=== PATIENT | male | born 1940 | race Caucasian/White ===

== ENCOUNTER → 2016-08-09 | Outpatient (REF) | payer MEDICARE, OTHER ==
[2016-08-09 17:25] LABS: ALBUMIN 3.4 GM/DL (3.2-5.2); ALKALINE PHOSPHATASE 92 U/L (45-117); ALT/SGPT 24 U/L (12-78); ANION GAP 5 MEQ/L (8-16); AST/SGOT 21 U/L (15-37); BILIRUBIN,TOTAL 0.5 MG/DL (0.2-1.0); BLOOD UREA NITROGEN 25 MG/DL (7-18); CARBON DIOXIDE LEVEL 31 MEQ/L (21-32); CHLORIDE LEVEL 105 MEQ/L (98-107); CHOLESTEROL LEVEL 180 MG/DL (<200); CREATININE FOR GFR 1.15 MG/DL (0.70-1.30); GLOMERULAR FILTRATION RATE > 60.0 (>42); GLUCOSE, FASTING 90 MG/DL (83-110); POTASSIUM SERUM 4.3 MEQ/L (3.5-5.1); SODIUM LEVEL 141 MEQ/L (136-145); TOTAL PROTEIN 6.8 GM/DL (6.4-8.2); TRIGLYCERIDES LEVEL 125 MG/DL (<150)
== END ==
LOC: M SFHCCAPE 07:16
PROVIDERS: ATTEND Nurse Practitioner
DX: E78.5 Hyperlipidemia, unspecified (principal); Z12.5 Encounter for screening for malignant neoplasm of prostate
CPT/HCPCS: 36415; 80053; 80061; G0103

== ENCOUNTER → 2017-03-07 | Outpatient (CLI) | payer MEDICARE, OTHER | LOC: M WUC 12:13 | DX: R05 Cough (principal); M41.85 Other forms of scoliosis, thoracolumbar region | CPT/HCPCS: 71046; G0463 ==

== ENCOUNTER → 2017-07-17 | Outpatient (REF) | payer MEDICARE, OTHER | LOC: M SFHCLERA 14:31 | DX: D23.5 Other benign neoplasm of skin of trunk (principal) | CPT/HCPCS: 88305 ==

== ENCOUNTER → 2018-02-25 | Outpatient (REF) | payer MEDICARE, OTHER ==
[~2018-02-25] MED LIST: ATOR1TAB21 PO; CLOP75TA2 PO; HYDR25TAB PO; LOSA50TA88 PO; SOTA80TA2 PO; WARF-23 PO
[2018-02-25 16:51] LABS: BASO # 0.1 10^3/uL (0.0-0.2); BASO % 0.7 % (0.0-1.0); EOS # 0.3 10^3/uL (0.0-0.50); EOS % 3.6 % (0.0-3.0); HEMATOCRIT 30.9 % (42.0-52.0); HEMOGLOBIN 9.6 g/dl (13.5-17.5); LYMPH # 1.8 10^3/uL (1.5-4.5); LYMPH % 24.2 % (24.0-44.0); MEAN CORPUSCULAR HEMOGLOBIN 29.7 pg (27.0-33.0); MEAN CORPUSCULAR HGB CONC 31.1 g/dl (32.0-36.5); MEAN CORPUSCULAR VOLUME 95.7 fl (80.0-96.0); MONO # 0.8 10^3/uL (0.0-0.8); MONO % 10.9 % (0.0-5.0); NEUTROPHILS # 4.5 10^3/uL (1.8-7.7); NEUTROPHILS % 60.3 % (36.0-66.0); PLATELET COUNT, AUTOMATED 249 10^3/uL (150-450); RED BLOOD COUNT 3.23 10^6/uL (4.30-6.10); WHITE BLOOD COUNT 7.4 10^3/uL (4.0-10.0)
[2018-02-25 16:56] LABS: ALBUMIN 3.2 GM/DL (3.2-5.2); BILIRUBIN,TOTAL 0.2 MG/DL (0.2-1.0); CALCIUM LEVEL 8.3 MG/DL (8.8-10.2); CHOLESTEROL RISK RATIO 2.111 (<5); CREATININE FOR GFR 1.27 MG/DL (0.70-1.30); GLOMERULAR FILTRATION RATE 58.2 (>42); POTASSIUM SERUM 5.1 MEQ/L (3.5-5.1); THYROID STIMULATING HORMONE 4.65 uIU/ML (0.358-3.740); TOTAL PROTEIN 6.5 GM/DL (6.4-8.2)
== END ==
LOC: M SFHCCAPE 07:36
PROVIDERS: ATTEND Physician Assistant
DX: I10 Essential (primary) hypertension (principal); E78.5 Hyperlipidemia, unspecified; Z12.5 Encounter for screening for malignant neoplasm of prostate
CPT/HCPCS: 36415; 80053; 80061; 84443; 85025; G0103

== ENCOUNTER → 2018-02-27 | Outpatient (REF) | payer MEDICARE, OTHER ==
[2018-02-27 17:15] LABS: APPEARANCE, URINE CLOUDY (CLEAR); BACTERIA, URINE AUTO NEGATIVE (NEGATIVE); BILIRUBIN, URINE AUTO NEGATIVE (NEGATIVE); BLOOD, URINE BLOOD 3+ (NEGATIVE); COLOR, URINE AMBER (YELLOW); GLUCOSE, URINE (UA) AUTO NEGATIVE (NEGATIVE); KETONE, URINE AUTO NEGATIVE (NEGATIVE); LEUKOCYTE ESTERASE, URINE AUTO NEGATIVE (NEGATIVE); MUCUS, URINE SMALL (NEGATIVE); NITRITE, URINE AUTO NEGATIVE (NEGATIVE); PROTEIN, URINE AUTO 2+ mg/dL (NEGATIVE); RBC, URINE AUTO TNTC /HPF (0-3); SPECIFIC GRAVITY URINE AUTO 1.013 (1.002-1.035); SQUAMOUS EPITHELIAL CELL UR AU 0 /HPF (0-6); UROBILINOGEN, URINE AUTO 0.2 mg/dL (0.0-2.0); WBC, URINE AUTO 3 /HPF (0-3)
== END ==
LOC: M SFHCCAPE 12:38
PROVIDERS: ATTEND Physician Assistant
DX: R82.998 Other abnormal findings in urine (principal)
CPT/HCPCS: 81001; 87086; G0463

== ENCOUNTER → 2018-03-05 | Outpatient (REF) | payer MEDICARE, OTHER | LOC: M SMT 13:17 | PROVIDERS: ATTEND Nurse Practitioner Women's Health | DX: R31.0 Gross hematuria (principal) | CPT/HCPCS: 88108; G0463 ==

== ENCOUNTER → 2018-03-06 | Outpatient (REF) | payer MEDICARE, OTHER ==
[2018-03-06 17:01] LABS: ALBUMIN 3.4 GM/DL (3.2-5.2); ALT/SGPT 17 U/L (12-78); BILIRUBIN,TOTAL 0.4 MG/DL (0.2-1.0); BLOOD UREA NITROGEN 42 MG/DL (7-18); CALCIUM LEVEL 8.9 MG/DL (8.8-10.2); CARBON DIOXIDE LEVEL 26 MEQ/L (21-32); CHLORIDE LEVEL 107 MEQ/L (98-107); CREATININE FOR GFR 1.08 MG/DL (0.70-1.30); GLOMERULAR FILTRATION RATE > 60.0 (>42); GLUCOSE, FASTING 83 MG/DL (70-100); POTASSIUM SERUM 4.4 MEQ/L (3.5-5.1); SODIUM LEVEL 142 MEQ/L (136-145); TOTAL PROTEIN 6.7 GM/DL (6.4-8.2)
[2018-03-06 17:02] LABS: BASO # 0.1 10^3/uL (0.0-0.2); BASO % 0.6 % (0.0-1.0); EOS # 0.2 10^3/uL (0.0-0.50); HEMATOCRIT 29.5 % (42.0-52.0); HEMOGLOBIN 9.3 g/dl (13.5-17.5); LYMPH # 1.9 10^3/uL (1.5-4.5); LYMPH % 24.2 % (24.0-44.0); MEAN CORPUSCULAR HEMOGLOBIN 29.9 pg (27.0-33.0); MEAN CORPUSCULAR HGB CONC 31.5 g/dl (32.0-36.5); MEAN CORPUSCULAR VOLUME 94.9 fl (80.0-96.0); MONO # 0.8 10^3/uL (0.0-0.8); MONO % 10.9 % (0.0-5.0); NEUTROPHILS # 4.7 10^3/uL (1.8-7.7); PLATELET COUNT, AUTOMATED 262 10^3/uL (150-450); RED BLOOD COUNT 3.11 10^6/uL (4.30-6.10); WHITE BLOOD COUNT 7.7 10^3/uL (4.0-10.0)
[2018-03-06 17:09] LABS: INR 1.57
== END ==
LOC: M SFHCCAPE 10:44
PROVIDERS: ATTEND Physician Assistant
DX: R04.0 Epistaxis (principal); R31.0 Gross hematuria
CPT/HCPCS: 36415; 80053; 85025; 85610; G0463

== ENCOUNTER → 2018-03-07 | Outpatient (CLI) | payer MEDICARE, OTHER ==
[~2018-03-07] MED LIST changes: +ISOVUE-370 76% 100ML VIAL (Q9967) As Ordered ONE
--- NOTE | 2018-03-07 12:46 | REP ---
CT UROGRAPHY: CT without and dual-phase postcontrast imaging abdomen and pelvis. HISTORY: Gross hematuria. CT CONTRAST DOSE: 100 mL of intravenous Isovue 370. 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 Fiducial markers are seen at the prostate. The bowel gas pattern is normal. There is a mild interstitial fibrosis pattern in the lower lobes of the lungs bilaterally. There are multiple benign hepatic cysts. The largest of these is in the left lobe measuring 5.1 x 4.0 cm. There are renal cortical cysts present bilaterally. The largest of these is in the right kidney mid pole level anteriorly measuring 2.3 cm. No hydronephrosis is seen on either side. There is vascular calcification. No definite intrarenal nephrolithiasis. The kidneys enhance symmetrically. There is heavy vascular calcification in the proximal renal arteries bilaterally. There is an infrarenal abdominal aortic aneurysm which measures 3.7 cm in greatest diameter. There is a small enhancing nodule in the posterior wall of the urinary bladder consistent with a neoplastic bladder lesion. This measures approximately 1.4 cm. This is seen as a filling defect on the right posterior bladder wall on delayed acquisition. No other enhancing bladder mass lesion is appreciated. There are bilateral bladder diverticula, larger and more numerous on the right than the left. There is a large low density cystic lesion and anterior to the left proximal superficial femoral artery in the left thigh. This measures 7.9 x 7.0 cm. It is incompletely seen as it extends off the bottom of the imaging field of view. This is compatible with a hematoma. There are surgical changes above it in the groin. IMPRESSION: Small enhancing mass in the posterior wall of the urinary bladder to the right of midline. 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 Large hematoma left groin soft tissues. 0.7 cm infrarenal abdominal aortic aneurysm. Renal cortical cysts and hepatic cysts. Electronically Signed by Jesus Pink MD 03/07/2018 07:53 P
== END ==
LOC: M RAD 08:19
PROVIDERS: ATTEND Nurse Practitioner Women's Health
DX: R31.0 Gross hematuria (principal)
CPT/HCPCS: 52000; 74178; Q9967

== ENCOUNTER → 2018-03-19 | Outpatient (REF) | payer MEDICARE, OTHER ==
[~2018-03-19] MED LIST changes: -ISOVUE-370 76% 100ML VIAL (Q9967) As Ordered ONE
== END ==
LOC: M LABSMT 09:24
PROVIDERS: ATTEND Urology
DX: Z01.818 Encounter for other preprocedural examination (principal); D49.4 Neoplasm of unspecified behavior of bladder; N39.0 Urinary tract infection, site not specified
CPT/HCPCS: 87086; 93005; G0463

== ENCOUNTER 2018-03-26 06:36 | Day surgery (SDC) | payer MEDICARE, OTHER ==
[~2018-03-26] VITALS: Ht 172.7 cm; Wt 88.0 kg
[~2018-03-26 06:36] MED LIST changes: +LIDOCAINE 1% MDV 20ML VIAL SQ PRN
[2018-03-26] MEDS ORDERED: LR 1,000 ML IV ONE (06:45)
[2018-03-26 07:09] LABS: INR 0.96; PROTHROMBIN TIME 12.9 SECONDS (12.1-14.4)
[2018-03-26] MEDS ORDERED: LIDOCAINE 2% INJ 100 MG/5 ML SDV (FOR ANES.) As Ordered ONE (07:14)
[2018-03-26] MEDS ORDERED: PROPOFOL 200 MG/20 ML VIAL As Ordered ONE (07:14)
[2018-03-26] MEDS ORDERED: fentaNYL 100 MCG/2 ML INJECTION (J3010) As Ordered ONE (07:15)
[2018-03-26] MEDS ORDERED: MIDAZOLAM INJ 2 MG/2 ML VIAL (J2250) As Ordered ONE (07:16)
[2018-03-26] MEDS ORDERED: ALBUTEROL SULFATE 2.5 MG/0.5 ML INH NEB SOLN INH ONE (07:30)
[2018-03-26] MEDS ORDERED: ROCURONIUM BROMIDE 50 MG/5 ML VIAL As Ordered ONE (07:37)
[2018-03-26] MEDS ORDERED: ePHEDrine SULFATE 25 MG/5 ML(5MG/ML) SYRINGE As Ordered ONE (08:06)
[2018-03-26] MEDS ORDERED: ONDANSETRON 4MG/2ML VIAL (J2405) As Ordered ONE (08:07)
[2018-03-26] MEDS ORDERED: KETOROLAC 60 MG/2 ML VIAL (J1885) As Ordered ONE (08:07)
[2018-03-26] MEDS ORDERED: METOCLOPRAMIDE INJ 10MG/2ML VIAL (J2765) As Ordered ONE (08:07)
[2018-03-26] MEDS ORDERED: SUGAMMADEX SODIUM 500 MG/5 ML VIAL (BRIDION) As Ordered ONE (08:20)
[2018-03-26] MEDS ORDERED: LR 1,000 ML IV SCH (08:45)
[2018-03-26] MEDS ORDERED: NORCO, ANEXSIA 5/325MG TABLET (HYDROcodone/ACETAMINOPHEN) PO PRN (08:45)
[2018-03-26] MEDS ORDERED: fentaNYL 100 MCG/2 ML INJECTION (J3010) IV PRN (08:45)
[2018-03-26] MEDS ORDERED: ACETAMINOPHEN TAB 650MG DOSE (2X325MG) PO PRN (09:00)
[2018-03-26 11:20] VITALS: BP 187/77
--- NOTE | 2018-03-27 08:27 | RO ---
DATE OF PROCEDURE: 03/26/2018 PREPROCEDURE DIAGNOSIS: Bladder tumors. POSTPROCEDURE DIAGNOSIS: Bladder tumors. PROCEDURE: Cystoscopy, transurethral resection of bladder tumors (between 2 and 5 cm), examination under anesthesia. SURGEON: Zac Greene MD [id number] MULTI SENSOR OPERATOR: None. ANESTHESIA: General. OPERATIVE INDICATIONS: This is a 77-year-old male who was recently found to have a moderate sized bladder tumor in his right lateral wall. He was brought to the operating room today for the above listed procedure. DESCRIPTION OF PROCEDURE: The patient was brought to the operating room and general anesthesia was induced. Prophylactic antibiotics were infused. He was then placed in dorsal lithotomy position and a bimanual digital rectal examination under anesthesia was performed. The bladder was freely mobile and there were no palpable bladder masses. There were no palpable prostate masses. At this point, the patient was prepped and draped in the usual sterile fashion. A resectoscope was inserted through the meatus and advanced into the bladder using the visual obturator. The bladder was then thoroughly examined and the only tumor seen was on the right lateral wall. There was a moderate sized tumor surrounded by a few smaller tumors. At this point, all of the tumors were removed using the resectoscope. I made sure to resect deep enough to get a sample of the muscle layer. Once satisfied all of the tumors had been resected, they were removed from the bladder and sent off for pathologic analysis. I then utilized the coagulation current to achieve good hemostasis. Once satisfied with hemostasis, an #18 [place] Yates was inserted into the bladder and the balloon was filled with 10 mL of sterile water. The catheter was then connected to gravity drainage and this marked conclusion of the procedure. The patient was then taken out of the dorsal lithotomy position, awakened from anesthesia and transported to the recovery room in stable condition. ESTIMATED BLOOD LOSS: 5 mL. COMPLICATIONS: None. SPECIMENS: Bladder tumors. PLAN: The patient will follow-up in the clinic in approximately one week for catheter removal and to discuss pathology results.
== END 2018-03-26 11:26 | disposition home or self-care (01) ==
LOC: M SDC 06:36
PROVIDERS: ATTEND Urology
DX: C67.9 Malignant neoplasm of bladder, unspecified (principal); I49.9 Cardiac arrhythmia, unspecified; I25.10 Atherosclerotic heart disease of native coronary artery without angina pectoris; I10 Essential (primary) hypertension; E78.00 Pure hypercholesterolemia, unspecified; M12.9 Arthropathy, unspecified; M70.61 Trochanteric bursitis, right hip; Z79.899 Other long term (current) drug therapy; Z79.01 Long term (current) use of anticoagulants; Z85.46 Personal history of malignant neoplasm of prostate; Z92.3 Personal history of irradiation; Z87.891 Personal history of nicotine dependence
CPT/HCPCS: 36415; 52235; 85610; 88307; J0690; J1885; J2250; J2405; J2765; J3010

== ENCOUNTER 2018-04-23 09:58 | Emergency (ER) | payer MEDICARE, OTHER ==
[~2018-04-23] VITALS: Ht 172.7 cm; Wt 89.6 kg
[~2018-04-23 09:58] MED LIST changes: -LIDOCAINE 1% MDV 20ML VIAL SQ PRN
[2018-04-23] MEDS ORDERED: NS 1,000 ML IV SCH (10:30)
[2018-04-23 10:57] LABS: BASO % 0.5 % (0.0-1.0); EOS # 0.2 10^3/uL (0.0-0.50); EOS % 2.3 % (0.0-3.0); HEMATOCRIT 29.2 % (42.0-52.0); LYMPH # 1.5 10^3/uL (1.5-4.5); LYMPH % 18.3 % (24.0-44.0); MEAN CORPUSCULAR HEMOGLOBIN 28.8 pg (27.0-33.0); MEAN CORPUSCULAR HGB CONC 30.8 g/dl (32.0-36.5); MEAN CORPUSCULAR VOLUME 93.3 fl (80.0-96.0); MONO # 0.8 10^3/uL (0.0-0.8); NEUTROPHILS # 5.8 10^3/uL (1.8-7.7); NEUTROPHILS % 69.5 % (36.0-66.0); PLATELET COUNT, AUTOMATED 279 10^3/uL (150-450); RED BLOOD COUNT 3.13 10^6/uL (4.30-6.10); WHITE BLOOD COUNT 8.3 10^3/uL (4.0-10.0)
[2018-04-23 11:07] LABS: INR 2.3; PROTHROMBIN TIME 25.8 SECONDS (12.1-14.4)
[2018-04-23 11:08] LABS: BILIRUBIN, URINE MANUAL OBSCURED (NEGATIVE); GLUCOSE, URINE (UA) MANUAL NEGATIVE (NEGATIVE); KETONE, URINE MANUAL OBSCURED mg/dL (NEGATIVE); PARTIAL THROMBOPLASTIN TIME 37.2 SECONDS (25.4-37.6); UROBILINOGEN, URINE MANUAL OBSCURED mg/dl (NORMAL)
[2018-04-23 11:14] LABS: BACTERIA, URINE SMALL AMOUNT; HYALINE CAST, URINE NONE SEEN /lpf (0-1); RBC, URINE TNTC /hpf (0-3); SQUAMOUS EPITHELIAL CELL URINE SMALL AMOUNT /hpf (SMALL AMT)
[2018-04-23 11:23] LABS: CREATININE FOR GFR 1.26 MG/DL (0.70-1.30); GLOMERULAR FILTRATION RATE 58.8 (>42); POTASSIUM SERUM 4.9 MEQ/L (3.5-5.1)
[2018-04-23] MEDS ORDERED: ISOVUE-370 76% 100ML VIAL (Q9967) As Ordered ONE (11:59)
--- NOTE | 2018-04-23 13:43 | REP ---
CT ABDOMEN AND PELVIS WITH AND WITHOUT IV CONTRAST (CT UROGRAM): CT abdomen and pelvis performed prior to and following the intravenous administration of 100 mL of Isovue 370. Sagittal, coronal, and 3D MIP reconstruction images are performed. Comparison made with prior study of 03/07/2018. Visualized lung bases demonstrate moderate fibrotic change. A calcified granuloma is seen in each lower lobe. In the left lower lobe there are three subcentimeter nodular opacities identified measuring 5 to 6 mm in diameter. Liver again demonstrates several cysts, the largest is superiorly and anteriorly located in the left lobe measuring approximately 5.1 cm in diameter. Gallbladder is grossly unremarkable. Spleen demonstrates a couple of tiny calcified granulomas. There is a left adrenal adenoma measuring 2 cm in maximum diameter. Right adrenal is unremarkable. Pancreas is unremarkable. There is no biliary dilatation or pancreatic duct dilatation. Kidneys demonstrate mild vascular calcifications, but no calculi. There are cysts in each kidney more so on the right than on the left. Two hyperdense cysts are seen in the right kidney, one in the upper pole posteromedially measuring about 1.7 cm in diameter and the other posteriorly measuring about 1.6 cm in diameter. These do not enhance. There is no hydroureteronephrosis. Two bladder diverticula are seen posteriorly on the right. There is ill-defined density in the dependent portion of the bladder causing filling defects on the delayed images through the bladder. I suspect this represents hematoma and blood clot. Underlying bladder mass cannot be excluded. No bladder calculus is seen. There is a moderate atherosclerotic calcification of the abdominal aorta. There is aneurysmal dilatation of the distal abdominal aorta up to 3.8 cm. There is no adenopathy. There is no free air or free fluid. I see no bowel wall thickening. Multiple metallic densities are seen in the region of the prostate. There are also metallic clips in both inguinal regions. There is a large fluid collection in the left inguinal region probably representing an old hematoma with a maximum diameter of 8.2 cm. There are degenerative changes of the spine. There is a small hiatal hernia. IMPRESSION: Three subcentimeter nodules left lower lobe of uncertain significance. If the patient is at high risk for cancer recommend full CT of the chest to evaluate for other possible nodules. Liver and renal cysts as discussed above. No suspicious renal mass and no evidence of renal, ureteral, or bladder calculus. Dependent material in the bladder is dense on precontrast images and appears to represent hematoma and blood clot. Underlying mass in the bladder cannot be excluded. Large left inguinal fluid collection probably represents an old hematoma measuring slightly greater than 8 cm in maximum diameter. Abdominal aortic aneurysm with maximum diameter 3.8 cm. Electronically Signed by Curly Giron MD 04/23/2018 11:12 P
[2018-04-23] MEDS ORDERED: SOTALOL HCL 80 MG TAB PO ONE (15:00)
[2018-04-23] MEDS ORDERED: LOSARTAN 50 MG TAB PO ONE (15:00)
[2018-04-23 16:04] VITALS: BP 196/78
--- NOTE | 2018-04-23 20:33 | ECGEPIP ---
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 Order Number: [id number] Reading MD: Red Kohli Measurements Intervals [place] Rate: 58 P: 51 DC: 176 QRS: 46 QRSD: 95 T: 41 QT: 444 QTc: 438 Interpretive Statements SINUS BRADYCARDIA VOLTAGE CRITERIA FOR LVH Comparison tracing not on file Electronically Signed On 04-23-2018 20:33:31 EST by Red Kohli
--- NOTE | 2018-04-25 15:30 | ED PDOC ---
Post-Departure Follow-Up [facility] faxed formal report of ct abd/p for fu Bob Amezcua MD Apr 25, 2018 15:30
== END 2018-04-23 16:15 | disposition home or self-care (01) ==
LOC: M ED 09:58
DX: S37.22XA Contusion of bladder, initial encounter (principal); X58.XXXA Exposure to other specified factors, initial encounter; Y92.89 Other specified places as the place of occurrence of the external cause; R31.0 Gross hematuria; R91.1 Solitary pulmonary nodule; I71.4 Abdominal aortic aneurysm, without rupture; I10 Essential (primary) hypertension; Z95.0 Presence of cardiac pacemaker; Z85.46 Personal history of malignant neoplasm of prostate; Z79.899 Other long term (current) drug therapy; Z79.01 Long term (current) use of anticoagulants
CPT/HCPCS: 74178; 80048; 81000; 85025; 85610; 85730; 87086; 93005; 96360; 96361; 99284; Q9967

== ENCOUNTER 2018-05-13 10:30 | Outpatient (RCR) | payer MEDICARE, OTHER | END 2018-05-18 | LOC: M PT 10:30 | PROVIDERS: ATTEND Surgery Vascular Surgery | DX: I89.0 Lymphedema, not elsewhere classified (principal) ==

== ENCOUNTER 2018-06-16 08:30 | Outpatient (RCR) | payer MEDICARE, OTHER | END 2018-06-17 | LOC: M PT 08:30 | PROVIDERS: ATTEND Surgery Vascular Surgery | DX: I89.0 Lymphedema, not elsewhere classified (principal) ==

== ENCOUNTER → 2018-06-30 | Outpatient (REF) | payer MEDICARE, OTHER | LOC: M SMT 18:09 | PROVIDERS: ATTEND Urology | DX: C67.9 Malignant neoplasm of bladder, unspecified (principal) ==

== ENCOUNTER 2018-07-09 08:12 | Outpatient (RCR) | payer MEDICARE, OTHER | END 2018-07-18 | LOC: M PT 08:12 | PROVIDERS: ATTEND Surgery Vascular Surgery | DX: I89.0 Lymphedema, not elsewhere classified (principal) ==

== ENCOUNTER 2018-09-09 09:17 | Outpatient (RCR) | payer MEDICARE, OTHER | END 2018-09-17 | LOC: M PT 09:17 | PROVIDERS: ATTEND Surgery Vascular Surgery | DX: I89.0 Lymphedema, not elsewhere classified (principal) ==

== ENCOUNTER → 2018-09-29 | Outpatient (REF) | payer MEDICARE, OTHER | LOC: M SMT 13:20 | PROVIDERS: ATTEND Urology | DX: C67.9 Malignant neoplasm of bladder, unspecified (principal) ==

== ENCOUNTER → 2019-01-05 | Outpatient (REF) | payer MEDICARE, OTHER | LOC: M SMT 13:05 | PROVIDERS: ATTEND Urology | DX: C67.9 Malignant neoplasm of bladder, unspecified (principal) ==

== ENCOUNTER 2019-03-12 09:41 | Outpatient (RCR) | payer MEDICARE, OTHER | END 2019-03-20 | LOC: M PT 09:41 | PROVIDERS: ATTEND Surgery Vascular Surgery | DX: I89.0 Lymphedema, not elsewhere classified (principal) ==

== ENCOUNTER → 2019-05-04 | Outpatient (REF) | payer MEDICARE, OTHER | LOC: M SMT 13:11 | PROVIDERS: ATTEND Urology | DX: C67.9 Malignant neoplasm of bladder, unspecified (principal) ==

== ENCOUNTER → 2019-06-19 | Outpatient (REF) | payer MEDICARE, OTHER ==
[2019-06-19 16:19] LABS: HEMATOCRIT 33.3 % (42.0-52.0); HEMOGLOBIN 10.6 g/dl (13.5-17.5); MEAN CORPUSCULAR HEMOGLOBIN 30.2 pg (27.0-33.0); MEAN CORPUSCULAR HGB CONC 31.8 g/dl (32.0-36.5); MEAN CORPUSCULAR VOLUME 94.9 fl (80.0-96.0); PLATELET COUNT, AUTOMATED 198 10^3/uL (150-450); RED BLOOD COUNT 3.51 10^6/uL (4.30-6.10); WHITE BLOOD COUNT 15.1 10^3/uL (4.0-10.0)
[2019-06-19 16:47] LABS: CALCIUM LEVEL 8.4 MG/DL (8.8-10.2); CREATININE FOR GFR 1.9 MG/DL (0.70-1.30); GLOMERULAR FILTRATION RATE 36.4 (>35); POTASSIUM SERUM 4.4 MEQ/L (3.5-5.1)
== END ==
LOC: M LABDRAWC 15:44
PROVIDERS: ATTEND Surgery Vascular Surgery
DX: Z01.818 Encounter for other preprocedural examination (principal)

== ENCOUNTER → 2019-07-20 | Outpatient (REF) | payer MEDICARE, OTHER ==
[2019-07-20 16:30] LABS: HEMATOCRIT 33.1 % (42.0-52.0); MEAN CORPUSCULAR HEMOGLOBIN 29.2 pg (27.0-33.0); MEAN CORPUSCULAR HGB CONC 30.2 g/dl (32.0-36.5); MEAN CORPUSCULAR VOLUME 96.5 fl (80.0-96.0); PLATELET COUNT, AUTOMATED 158 10^3/uL (150-450); RED BLOOD COUNT 3.43 10^6/uL (4.30-6.10); WHITE BLOOD COUNT 5.9 10^3/uL (4.0-10.0)
[2019-07-20 16:33] LABS: C REACTIVE PROTEIN QUANTITATIV 1.15 MG/DL (0.00-0.30); CALCIUM LEVEL 8.8 MG/DL (8.8-10.2); CREATININE FOR GFR 1.42 MG/DL (0.70-1.30); GLOMERULAR FILTRATION RATE 50.9 (>35); POTASSIUM SERUM 4.2 MEQ/L (3.5-5.1)
[2019-07-20 18:12] LABS: ERYTHROCYTE SEDIMENTATION RATE 49 mm/hr (0-20)
== END ==
LOC: M LAB REF 15:53
PROVIDERS: ATTEND Nurse Practitioner
DX: L76.32 Postprocedural hematoma of skin and subcutaneous tissue following other procedure (principal); A49.01 Methicillin susceptible Staphylococcus aureus infection, unspecified site

== ENCOUNTER → 2019-07-24 | Outpatient (REF) | payer MEDICARE, OTHER ==
[2019-07-24 17:33] LABS: BASO # 0.1 10^3/uL (0.0-0.2); BASO % 0.9 % (0.0-1.0); EOS # 0.3 10^3/uL (0.0-0.5); EOS % 4.5 % (0.0-3.0); HEMATOCRIT 29.9 % (42.0-52.0); HEMOGLOBIN 9.2 g/dl (13.5-17.5); LYMPH # 1.6 10^3/uL (1.5-5.0); LYMPH % 26.9 % (24.0-44.0); MEAN CORPUSCULAR HEMOGLOBIN 29.6 pg (27.0-33.0); MEAN CORPUSCULAR HGB CONC 30.8 g/dl (32.0-36.5); MEAN CORPUSCULAR VOLUME 96.1 fl (80.0-96.0); MONO # 0.5 10^3/uL (0.0-0.8); MONO % 9.4 % (0.0-5.0); NEUTROPHILS # 3.3 10^3/uL (1.5-8.5); PLATELET COUNT, AUTOMATED 153 10^3/uL (150-450); RED BLOOD COUNT 3.11 10^6/uL (4.30-6.10); WHITE BLOOD COUNT 5.8 10^3/uL (4.0-10.0)
[2019-07-24 18:02] LABS: ALBUMIN 2.9 GM/DL (3.2-5.2); BILIRUBIN,TOTAL 0.5 MG/DL (0.2-1.0); C REACTIVE PROTEIN QUANTITATIV 1.04 MG/DL (0.00-0.30); CALCIUM LEVEL 8.8 MG/DL (8.8-10.2); CREATININE FOR GFR 1.52 MG/DL (0.70-1.30); GLOMERULAR FILTRATION RATE 47.1 (>35); POTASSIUM SERUM 4.2 MEQ/L (3.5-5.1); TOTAL PROTEIN 6.4 GM/DL (6.4-8.2)
[2019-07-24 18:03] LABS: ERYTHROCYTE SEDIMENTATION RATE 32 mm/hr (0-20)
== END ==
LOC: M LABDRAWC 15:54
PROVIDERS: ATTEND Nurse Practitioner
DX: L08.9 Local infection of the skin and subcutaneous tissue, unspecified (principal); T81.49XA Infection following a procedure, other surgical site, initial encounter

== ENCOUNTER → 2019-07-24 | Outpatient (REF) | payer MEDICARE, OTHER ==
[2019-07-24 17:43] LABS: ALBUMIN 2.9 GM/DL (3.2-5.2); BILIRUBIN,TOTAL 0.5 MG/DL (0.2-1.0); CALCIUM LEVEL 8.8 MG/DL (8.8-10.2); CHOLESTEROL RISK RATIO 2.702 (<5); CREATININE FOR GFR 1.55 MG/DL (0.70-1.30); FREE T4 1.2 NG/DL (0.76-1.46); POTASSIUM SERUM 4.1 MEQ/L (3.5-5.1); THYROID STIMULATING HORMONE 3.1 uIU/ML (0.358-3.740); TOTAL PROTEIN 6.5 GM/DL (6.4-8.2)
[2019-07-24 18:06] LABS: BASO # 0.1 10^3/uL (0.0-0.2); BASO % 1.1 % (0.0-1.0); EOS # 0.3 10^3/uL (0.0-0.5); EOS % 5.7 % (0.0-3.0); HEMATOCRIT 29.5 % (42.0-52.0); HEMOGLOBIN 9.2 g/dl (13.5-17.5); LYMPH # 1.5 10^3/uL (1.5-5.0); LYMPH % 26.5 % (24.0-44.0); MEAN CORPUSCULAR HEMOGLOBIN 29.9 pg (27.0-33.0); MEAN CORPUSCULAR HGB CONC 31.2 g/dl (32.0-36.5); MEAN CORPUSCULAR VOLUME 95.8 fl (80.0-96.0); MONO # 0.5 10^3/uL (0.0-0.8); MONO % 9.4 % (0.0-5.0); NEUTROPHILS # 3.2 10^3/uL (1.5-8.5); NEUTROPHILS % 56.8 % (36.0-66.0); PLATELET COUNT, AUTOMATED 153 10^3/uL (150-450); RED BLOOD COUNT 3.08 10^6/uL (4.30-6.10); WHITE BLOOD COUNT 5.6 10^3/uL (4.0-10.0)
== END ==
LOC: M SFHCCLAY 11:24
PROVIDERS: ATTEND Physician Assistant
DX: I10 Essential (primary) hypertension (principal); R79.89 Other specified abnormal findings of blood chemistry; E78.5 Hyperlipidemia, unspecified; L08.9 Local infection of the skin and subcutaneous tissue, unspecified; T81.49XA Infection following a procedure, other surgical site, initial encounter

== ENCOUNTER 2019-09-10 08:16 | Outpatient (RCR) | payer MEDICARE, OTHER | END 2019-09-18 | LOC: M PT 08:16 | PROVIDERS: ATTEND Surgery Vascular Surgery | DX: I89.0 Lymphedema, not elsewhere classified (principal) ==

== ENCOUNTER → 2019-11-05 | Outpatient (REF) | payer MEDICARE, OTHER ==
[2019-11-05 13:13] LABS: BASO # 0.1 10^3/uL (0.0-0.2); BASO % 0.8 % (0.0-1.0); EOS # 0.5 10^3/uL (0.0-0.5); EOS % 6.7 % (0.0-3.0); HEMATOCRIT 36.3 % (42.0-52.0); HEMOGLOBIN 11.6 g/dl (13.5-17.5); LYMPH # 1.7 10^3/uL (1.5-5.0); LYMPH % 24.2 % (24.0-44.0); MEAN CORPUSCULAR HEMOGLOBIN 31.1 pg (27.0-33.0); MEAN CORPUSCULAR VOLUME 97.3 fl (80.0-96.0); MONO # 0.7 10^3/uL (0.0-0.8); MONO % 10.3 % (0.0-5.0); NEUTROPHILS # 4.2 10^3/uL (1.5-8.5); NEUTROPHILS % 57.7 % (36.0-66.0); PLATELET COUNT, AUTOMATED 190 10^3/uL (150-450); RED BLOOD COUNT 3.73 10^6/uL (4.30-6.10); WHITE BLOOD COUNT 7.2 10^3/uL (4.0-10.0)
[2019-11-05 13:43] LABS: ALBUMIN 4.1 GM/DL (3.2-5.2); BILIRUBIN,TOTAL 0.6 MG/DL (0.2-1.0); CALCIUM LEVEL 9.2 MG/DL (8.8-10.2); CHOLESTEROL RISK RATIO 2.354 (<5); CREATININE FOR GFR 1.8 MG/DL (0.70-1.30); GLOMERULAR FILTRATION RATE 38.7 (>35); POTASSIUM SERUM 4.9 MEQ/L (3.5-5.1); THYROID STIMULATING HORMONE 2.48 uIU/ML (0.358-3.740); TOTAL PROTEIN 7.3 GM/DL (6.4-8.2)
[2019-11-05 15:25] LABS: HEMOGLOBIN A1c 5.7 %
== END ==
LOC: M SFHCCLAY 11:23
PROVIDERS: ATTEND Physician Assistant
DX: I10 Essential (primary) hypertension (principal); E78.5 Hyperlipidemia, unspecified; D50.9 Iron deficiency anemia, unspecified

== ENCOUNTER → 2019-11-13 | Outpatient (REF) | payer MEDICARE, OTHER | LOC: M SMT 13:18 | PROVIDERS: ATTEND Urology | DX: C67.9 Malignant neoplasm of bladder, unspecified (principal) ==

== ENCOUNTER → 2019-12-16 | Outpatient (REF) | payer MEDICARE, OTHER ==
[2019-12-16 17:18] LABS: CALCIUM LEVEL 8.9 MG/DL (8.8-10.2); CREATININE FOR GFR 1.76 MG/DL (0.70-1.30); GLOMERULAR FILTRATION RATE 39.8 (>35); POTASSIUM SERUM 5.1 MEQ/L (3.5-5.1)
== END ==
LOC: M SFHCCLAY 11:34
PROVIDERS: ATTEND Physician Assistant
DX: R79.89 Other specified abnormal findings of blood chemistry (principal)

== ENCOUNTER → 2020-05-05 | Outpatient (REF) | payer MEDICARE, OTHER ==
[~2020-05-05] MED LIST changes: +HYDR-3490 PO; -HYDR25TAB PO
[2020-05-05 16:50] LABS: CHOLESTEROL RISK RATIO 1.731 (<5)
== END ==
LOC: M LABDRAWC 15:58
PROVIDERS: ATTEND Internal Medicine Cardiovascular Disease
DX: E78.00 Pure hypercholesterolemia, unspecified (principal); Z79.899 Other long term (current) drug therapy

== ENCOUNTER 2020-05-10 08:22 | Outpatient (RCR) | payer MEDICARE, OTHER | END 2020-05-18 | LOC: M PT 08:22 | PROVIDERS: ATTEND Surgery Vascular Surgery | DX: I89.0 Lymphedema, not elsewhere classified (principal) ==

== ENCOUNTER 2020-05-31 08:20 | Outpatient (RCR) | payer MEDICARE, OTHER | END 2020-06-17 | LOC: M PT 08:20 | PROVIDERS: ATTEND Surgery Vascular Surgery | DX: I89.0 Lymphedema, not elsewhere classified (principal) ==

== ENCOUNTER → 2020-07-04 | Outpatient (REF) | payer MEDICARE, OTHER | LOC: M SMT 12:57 | PROVIDERS: ATTEND Urology | DX: C67.9 Malignant neoplasm of bladder, unspecified (principal) ==

== ENCOUNTER 2020-11-30 08:19 | Outpatient (RCR) | payer MEDICARE, OTHER | END 2020-12-18 | LOC: M PT 08:19 | PROVIDERS: ATTEND Surgery Vascular Surgery | DX: I89.0 Lymphedema, not elsewhere classified (principal) ==

== ENCOUNTER → 2021-01-02 | Outpatient (REF) | payer MEDICARE, OTHER ==
[2021-01-02 16:42] LABS: CHOLESTEROL RISK RATIO 2.056 (<5)
== END ==
LOC: M LABDRWCV 15:32
PROVIDERS: ATTEND Internal Medicine Cardiovascular Disease
DX: I10 Essential (primary) hypertension (principal)